=== PATIENT | male | born 1955 | race Caucasian/White ===

== ENCOUNTER → 2017-02-13 | Outpatient (CLI) | payer MEDICAID ==
[~2017-02-13] MED LIST: ASPI-757 PO; HYDR25SU51 RC; NITR0.4T3 SL
== END ==
LOC: AMB 13:09
PROVIDERS: ATTEND Nurse Practitioner
DX: R07.89 Other chest pain (principal); R00.1 Bradycardia, unspecified
CPT/HCPCS: A0425; A0426

== ENCOUNTER → 2017-02-13 | Outpatient (CLI) | payer MEDICAID | LOC: AMB 12:12 | PROVIDERS: ATTEND Nurse Practitioner | DX: R07.9 Chest pain, unspecified (principal); M79.602 Pain in left arm; R20.2 Paresthesia of skin | CPT/HCPCS: A0425; A0427 ==

== ENCOUNTER 2017-04-27 11:00 | Outpatient (RCR) | payer MEDICAID ==
[2017-04-05 13:15] VITALS: BP 118/78
[2017-04-05 13:17] VITALS: BP 112/72
--- NOTE | 2017-04-05 13:55 | CARDIAC REHAB PLAN OF CARE ---
Physician: [facility], Yon Bishop MD Patient is being seen: Moisés Scherer Medical Diagnosis: STEMI, PM Date of Initial Evaluation: Apr 05, 2017 Date patient was last seen: Number of treatments: Number of cancellations/No Shows: [*] INTERVENTIONS: SHORT TERM GOALS Short Term Goals Due Date: 05/03/17 Short Term Goals: Cali Cunningham is a 61 y/o male phase II patient with a hx of CABG and tobacco use presented with inferior STEMI on 02/13/17 underwent [facility] with finding of Saphenous Vein graft to pRCA with 99% stenosis s/p PCI. The patient however had recurrent CP following the procedure with recurrence of inferior ST elevations. He was brought back to the lab the following day with finding of thrombotic occlusion (recurrent) o0f SVG-RCA with CHANELLE 0-1 flow. This was treated with manual thrombectomy and angioplasty. The patient had Torsades requiring last night which required defibrillation. He was started on amiodarone drip for a day. TNI peaked at above 100 and is now 88.47. He was in AF upon arrival and has since had intermittent [id number] heart block alternation with high grade AV block. Escape rate has been consistently in the 50-60 range with a narrow QRS. Pacemaker/Defib device placed. Patient will begin phase II cardiac rehab protocol on 2017. Patient will also make adjustments to follow a heart healthy diet, improving cardiac health and to lose weight towards his BMI max weight of 169 pounds. Patient is 5'9" and 203 pounds. Short Term Goals Met: Short Term Goals Not Met Due To: PRINT BINDING WORKER GOALS Usp Goal Due Date: 06/03/17 Usp Goals: detention goals for patient are to maintain that consistency of exercise and achieve the minimum of 150 minutes each week of a moderate level of cardio exercise and add in weight resistance at least twice a week. Patient will also remain consistent with a heart healthy diet with proper portions. Usp Goals Met: Applications Trainer Goals Not Met Due To: PATIENT'S GOALS Patient Goals Due Date: 05/03/17 Patient Goals: Patient goals are to improve heart and overall health. Patient Goals Met: Patient Goals Not Met Due To: Cardiac Rehabilitation Plan of Care Comment: Cardiac rehab staff will monitor, record, and evaluate vitals, ECG, and exercise results to provide the best plan of care for the patient throughout the 36 visit phase II program. CR staff will educate and motivate the patient during visits for rehab. ANAM
[2017-04-20 13:35] VITALS: BP 120/79
[2017-04-20 13:36] VITALS: BP 115/72
[2017-04-25 13:26] VITALS: BP 126/80
[2017-04-25 13:27] VITALS: BP 106/70
[2017-04-27 17:11] VITALS: BP 108/76
[2017-04-27 17:12] VITALS: BP 108/74
--- NOTE | 2017-05-11 17:54 | CARDIAC REHAB PLAN OF CARE ---
Physician: [facility] Patient is being seen: Moisés Scherer Medical Diagnosis: STEMI, PM/Defib, Stent Date of Initial Evaluation: Apr 05, 2017 SHORT TERM GOALS Short Term Goals Due Date: 06/11/17 Short Term Goals: Cali Cunningham is a 61 y/o male phase II patient with a hx of CABG and tobacco use presented with inferior STEMI on 02/13/17 underwent [facility] with finding of Saphenous Vein graft to pRCA with 99% stenosis s/p PCI. The patient however had recurrent CP following the procedure with recurrence of inferior ST elevations. He was brought back to the lab the following day with finding of thrombotic occlusion (recurrent) o0f SVG-RCA with CHANELLE 0-1 flow. This was treated with manual thrombectomy and angioplasty. The patient had Torsades requiring last night which required defibrillation. He was started on amiodarone drip for a day. TNI peaked at above 100 and is now 88.47. He was in AF upon arrival and has since had intermittent [id number] heart block alternation with high grade AV block. Escape rate has been consistently in the 50-60 reange with a narrow QRS. Pacemaker/Defib device placed. Patient will begin phase II cardiac rehab protocol on 2017. Patient will also make adjustments to follow a heart healthy diet, improving cardiac health and to lose weight towards his BMI max weight of 169 pounds. Patient is 5'9" and 203 pounds. Short Term Goals Met: Patient has made three visits for cardiac rehab since his initial evaluation and tolerates 30 minutes of a moderate level cardio exercise , followed by 4 pound dumbbell resistance exercise. During exercise SPO2 levels are maintained in the 90's on room air and the vehicle monitor technician shows a sinus tach without ectopy and rates up 124. Short Term Goals Not Met Due To: Poor attendance. SCRAPER HAND GOALS Entry Examiner Goal Due Date: 07/11/17 Care Home Goals: The wilson to cardiac rehab goals is that consistency of exercise each week and meeting that minimum level of 150 minutes at a moderate level, along with weight resistance, and adjusting to a heart healthy diet. Entry Examiner Goals Met: Care Home Goals Not Met Due To: Both short term goals and long-term exercise goals are not being met because of a lack of attendance to cardiac rehab. PATIENT'S GOALS Patient Goals Due Date: 06/11/17 Patient Goals: Patient goals are to improve cardiac and overall health. Patient Goals Met: Patient Goals Not Met Due To: Cardiac Rehabilitation Plan of Care Comment: Cardiac rehab staff will contact patient to see if better attendance is possible, and can resume the program for the remainder of the 32 visits in the phase II program. ANAM
== END 2017-04-27 18:00 | disposition home or self-care (01) ==
LOC: CARD 11:00
PROVIDERS: ATTEND Internal Medicine Cardiovascular Disease
DX: I25.2 Old myocardial infarction (principal); Z96.89 Presence of other specified functional implants; Z95.0 Presence of cardiac pacemaker; Z95.1 Presence of aortocoronary bypass graft; Z87.891 Personal history of nicotine dependence; Z86.718 Personal history of other venous thrombosis and embolism; M19.92 Post-traumatic osteoarthritis, unspecified site
CPT/HCPCS: 93798

== ENCOUNTER → 2017-06-06 | Outpatient (CLI) | payer MEDICAID | LOC: LAB 12:14 | PROVIDERS: ATTEND Internal Medicine Cardiovascular Disease | DX: I50.22 Chronic systolic (congestive) heart failure (principal) | CPT/HCPCS: 36415; 82310; 82374; 82435; 82565; 82947; 83735; 84132; 84295; 84520 ==

== ENCOUNTER → 2017-12-12 | Outpatient (CLI) | payer MEDICAID | LOC: LAB 14:19 | PROVIDERS: ATTEND Internal Medicine | DX: I47.2 Ventricular tachycardia (principal) | CPT/HCPCS: 36415; 82310; 82374; 82435; 82565; 82947; 83735; 84132; 84295; 84520 ==

== ENCOUNTER 2018-01-19 12:04 | Emergency (ER) | payer MEDICAID ==
[~2018-01-19 12:04] MED LIST changes: -ATOR40TA24 PO; -FURO-45 PO; -LISI5TAB25 PO; -MAGN400T36 PO; -METO25TA23 PO; -METO50TA19 PO; -NIT4 SL; -POTA20TA85 PO; -SPIR25TA80 PO; -TICA90TA PO
--- NOTE | 2018-01-19 12:12 | ER Report ---
History and Physical Time Seen By MD: 12:13 HPI/ROS This is a 62-year-old male with a history of an SD with hx of CABG and tobacco use presented with inferior STEMI on 02/13/[address] [facility] with finding of Saphenous Vein graft to pRCA with 99% stenosis s/p PCI. The patient however had recurrent CP following the procedure with recurrence of inferior ST elevations. He was brought back to the lab the following day with finding of thrombotic occlusion (recurrent) o0f SVG-RCA with CHANELLE 0-1 flow. This was treated with manual thrombectomy and angioplasty. The patient had Torsades requiring last night which required defibrillation. He was started on amiodarone drip for a day. TNI peaked at above 100 and is now 88.47. He was in AF upon arrival and has since had intermittent [id number] heart block alternation with high grade AV block. Escape rate has been consistently in the 50-60 range with a narrow QRS. He was moving today when he started to experience chest tightness while going up and down the stairs. Became diaphoretic and SOB. Pain relieved eventually with rest. Pain free at this time. Take meds as prescribed. Is on Brelinta. No other complaints. Remainder of the 14 system rev: Yes Allergies: Coded Allergies: No Known Drug Allergies (Unverified , 02/13/17) Home Meds Reported Medications Atorvastatin Calcium (LIPITOR) 40 Mg Tablet, 2 TAB PO QDAY, TAB 01/19/18 Nitroglycerin (NITROSTAT) 0.4 Mg Subl, 0.4 MG SL Q5MIN 01/19/18 Spironolactone (SPIRONOLACTONE) 25 Mg Tablet, 12.5 MG PO DAILY, TAB 01/19/18 Ticagrelor (BRILINTA) 90 Mg Tablet, 90 MG PO BID 01/19/18 Lisinopril (LISINOPRIL) 5 Mg Tablet, 5 MG PO QDAY, TAB 01/19/18 Furosemide (FUROSEMIDE) 20 Mg Tablet, 1 TAB PO DAILY, TAB 01/19/18 Metoprolol Succinate (METOPROLOL SUCCINATE) 50 Mg Tab.er.24h, 1 TAB PO QAM, TAB 01/19/18 Metoprolol Succinate (METOPROLOL SUCCINATE) 25 Mg Tab.er.24h, 1 TAB PO QHS, TAB 01/19/18 Magnesium Oxide (MAGNESIUM OXIDE) 400 Mg Tablet, 400 MG PO DAILY 01/19/18 Potassium Chloride (KLOR-CON M20) 20 Meq Tab.er.prt, 20 MEQ PO QDAY 01/19/18 Aspirin (ASPIRIN) 325 Mg Tablet, 325 MG PO Q4-6H PRN for PAIN, TAB 02/03/17 Nitroglycerin (NITROGLYCERIN) 0.4 Mg Tab.subl, 0.4 MG SL Q5MIN 02/03/17 Reviewed Nurses Notes: Yes Old Medical Records Reviewed: Yes Hx Smoking: Yes Hx Substance Use Disorder: No Hx Alcohol Use: Yes Constitutional Vital Sign - Last 24 Hours 01/19/18 01/19/18 01/19/18 01/19/18 12:04 12:10 12:11 12:19 Pulse ??? 115 110 Resp 20 23 B/P (MAP) 158/88 (111) Pulse Ox 97 97 O2 Delivery Room Air 01/19/18 01/19/18 01/19/18 01/19/18 12:30 12:34 12:49 13:00 Pulse 104 106 Resp 16 16 B/P (MAP) 156/82 (106) 156/84 (108) Pulse Ox 95 93 O2 Delivery Room Air Room Air 01/19/18 01/19/18 01/19/18 01/19/18 13:04 13:09 13:24 13:30 Pulse 105 102 110 Resp 15 10 17 B/P (MAP) 151/83 (105) Pulse Ox 92 95 89 O2 Delivery Room Air 01/19/18 01/19/18 01/19/18 01/19/18 13:39 13:54 14:00 14:09 Pulse 110 101 106 Resp 27 13 15 B/P (MAP) 145/81 (102) Pulse Ox 92 96 92 O2 Delivery Room Air Room Air Room Air 01/19/18 01/19/18 01/19/18 01/19/18 14:14 14:29 14:30 14:32 Pulse 109 106 Resp 9 13 B/P (MAP) 136/128 (131) 161/91 (114) Pulse Ox 93 92 01/19/18 01/19/18 01/19/18 01/19/18 14:44 14:59 15:00 15:14 Pulse 111 108 112 Resp 15 18 43 B/P (MAP) 159/86 (110) Pulse Ox 92 94 94 01/19/18 01/19/18 01/19/18 01/19/18 15:29 15:30 15:44 15:59 Pulse 102 99 103 Resp 14 12 17 B/P (MAP) 150/81 (104) Pulse Ox 91 92 91 O2 Delivery Room Air Room Air Room Air 01/19/18 01/19/18 01/19/18 16:04 16:19 17:49 Pulse 106 101 99 Resp 8 10 Pulse Ox 92 94 93 Physical Exam General Appearance: The patient is alert, has no immediate need for airway pr otection and no current signs of toxicity. Eyes: Pupils equal and round no injection. Respiratory: Chest is non tender, lungs are clear to auscultation. Cardiac: regular rate and rhythm Gastrointestinal: Abdomen is soft and non tender, no masses, bowel sounds normal. Neck: Neck is supple and non tender. Extremities have full range of motion and are non tender. Skin: No rashes or lesions. DIFFERENTIAL DIAGNOSIS: After history and physical exam differential diagnosis was considered for chest pain including but not limited to myocardial ischemia, pericarditis pulmonary embolus, chest wall pain, pleural inflammation and pulmonary infectious causes. Medical Decision Making Data Points Result Diagram: 01/19/18 1229 01/19/18 1229 Laboratory Hematology Test 01/19/18 12:29 01/19/18 14:26 01/19/18 17:32 Red Blood Count 5.12 M/uL (4.00-5.60) Mean Corpuscular Volume 89.4 fL (80.0-96.0) Mean Corpuscular Hemoglobin 30.6 pg (26.0-33.0) Mean Corpuscular Hemoglobin Concent 34.2 g/dL (32.0-36.0) Red Cell Distribution Width 13.4 % (11.5-14.5) Mean Platelet Volume 8.6 fL (7.2-11.1) Neutrophils (%) (Auto) 76.9 % (39.4-72.5) Lymphocytes (%) (Auto) 15.6 % (17.6-49.6) Monocytes (%) (Auto) 6.3 % (4.1-12.4) Eosinophils (%) (Auto) 0.5 % (0.4-6.7) Basophils (%) (Auto) 0.7 % (0.3-1.4) Nucleated RBC Relative Count (auto) 0.0 /100WBC Neutrophils # (Auto) 5.7 K/uL (2.0-7.4) Lymphocytes # (Auto) 1.2 K/uL (1.3-3.6) Monocytes # (Auto) 0.5 K/uL (0.3-1.0) Eosinophils # (Auto) 0.0 K/uL (0.0-0.5) Basophils # (Auto) 0.1 K/uL (0.0-0.1) Nucleated RBC Absolute Count (auto) 0.00 K/uL Sodium Level 138 mmol/L (137-145) Potassium Level 4.3 mmol/L (3.5-5.0) Chloride Level 107 mmol/L (98-107) Carbon Dioxide Level 18 mmol/L (22-30) Blood Urea Nitrogen 12 mg/dl (9-21) Creatinine 0.90 mg/dl (0.66-1.25) Glomerular Filtration Rate Calc > 60.0 Random Glucose 106 mg/dl (75-110) Calcium Level 9.8 mg/dl (8.4-10.2) Total Bilirubin 0.7 mg/dl (0.2-1.3) Aspartate Amino Transf (AST/SGOT) 47 U/L (0-35) Alanine Aminotransferase (ALT/SGPT) 41 U/L (0-56) Alkaline Phosphatase 126 U/L (0-126) Total Protein 7.8 g/dl (6.3-8.2) Albumin 4.6 g/dl (3.5-5.0) D-Dimer Quantitative (PE/DVT) 0.52 ug/ml (0-0.50) Troponin I 0.047 ng/ml Chemistry Test 01/19/18 12:29 01/19/18 14:26 01/19/18 17:32 White Blood Count 7.4 k/uL (4.5-11.0) Red Blood Count 5.12 M/uL (4.00-5.60) Hemoglobin 15.6 g/dL (14.0-18.0) Hematocrit 45.7 % (42.0-52.0) Mean Corpuscular Volume 89.4 fL (80.0-96.0) Mean Corpuscular Hemoglobin 30.6 pg (26.0-33.0) Mean Corpuscular Hemoglobin Concent 34.2 g/dL (32.0-36.0) Red Cell Distribution Width 13.4 % (11.5-14.5) Platelet Count 272 K/uL (150-450) Mean Platelet Volume 8.6 fL (7.2-11.1) Neutrophils (%) (Auto) 76.9 % (39.4-72.5) Lymphocytes (%) (Auto) 15.6 % (17.6-49.6) Monocytes (%) (Auto) 6.3 % (4.1-12.4) Eosinophils (%) (Auto) 0.5 % (0.4-6.7) Basophils (%) (Auto) 0.7 % (0.3-1.4) Nucleated RBC Relative Count (auto) 0.0 /100WBC Neutrophils # (Auto) 5.7 K/uL (2.0-7.4) Lymphocytes # (Auto) 1.2 K/uL (1.3-3.6) Monocytes # (Auto) 0.5 K/uL (0.3-1.0) Eosinophils # (Auto) 0.0 K/uL (0.0-0.5) Basophils # (Auto) 0.1 K/uL (0.0-0.1) Nucleated RBC Absolute Count (auto) 0.00 K/uL Glomerular Filtration Rate Calc > 60.0 Calcium Level 9.8 mg/dl (8.4-10.2) Total Bilirubin 0.7 mg/dl (0.2-1.3) Aspartate Amino Transf (AST/SGOT) 47 U/L (0-35) Alanine Aminotransferase (ALT/SGPT) 41 U/L (0-56) Alkaline Phosphatase 126 U/L (0-126) Total Protein 7.8 g/dl (6.3-8.2) Albumin 4.6 g/dl (3.5-5.0) D-Dimer Quantitative (PE/DVT) 0.52 ug/ml (0-0.50) Troponin I 0.047 ng/ml Coagulation Test 01/19/18 14:26 D-Dimer Quantitative (PE/DVT) 0.52 ug/ml ED Course/Re-evaluation ED Course 62-year-old male with a history of coronary artery disease presents emergency department with what sounds like angina. However 2 troponins were taken and the 2nd one while negative still doubled from the 1st. His chest pain was relieved when he stopped moving quickly up and down stairs. Noted is a very mildly elevated D dimer which can be explained by age adjustment and is therefore negative given a very low pretest probability for a PE. Third troponin Has now risen into the zamora zone. I spoke with Dr. Patel, cardiology at [facility], who would like the patient transferred there for further evaluation. Decision to Disposition Date: Jan 19, 2018 Decision to Disposition Time: 19:05 Depart Departure Latest Vital Signs Vital Signs Date Time Temp Pulse Resp B/P (MAP) Pulse Ox O2 Delivery O2 Flow Rate FiO2 01/19/18 17:49 99 93 01/19/18 16:19 10 01/19/18 15:59 Room Air 01/19/18 15:30 150/81 (104) Impression: Primary Impression: Chest pain Condition: Improved Disposition: XFER TO [facility] Referrals: RED GUNTER MD (PCP) Problem Qualifiers Primary Impression: Chest pain Chest pain type: unspecified Qualified Codes: R07.9 - Chest pain, unspecified SOFIA ACOSTA MD Jan 19, 2018 12:12
[2018-01-19 12:41] LABS: PLATELET COUNT, AUTOMATED 272 K/uL (150-450)
[2018-01-19] MEDS ORDERED: MAGN400T36 PO (12:42)
[2018-01-19] MEDS ORDERED: ATOR40TA24 PO (12:42)
[2018-01-19] MEDS ORDERED: METO25TA23 PO (12:42)
[2018-01-19] MEDS ORDERED: LISI5TAB25 PO (12:42)
[2018-01-19] MEDS ORDERED: SPIR25TA80 PO (12:42)
[2018-01-19] MEDS ORDERED: FURO-45 PO (12:42)
[2018-01-19] MEDS ORDERED: NIT4 SL (12:42)
[2018-01-19] MEDS ORDERED: METO50TA19 PO (12:42)
[2018-01-19] MEDS ORDERED: TICA90TA PO (12:42)
[2018-01-19] MEDS ORDERED: POTA20TA85 PO (12:42)
--- NOTE | 2018-01-19 13:52 | EKG ---
[facility] PATIENT NAME: GENEVA TAYLOR : [id number] MR: [id number] V: [id number] EXAM DATE: ORDERING PHYSICIAN: SOFIA ACOSTA TECHNOLOGIST: Test Reason : chest pain Blood Pressure : / mmHG Vent. Rate : 111 BPM Atrial Rate : 111 BPM P-R Int : 170 ms QRS Dur : 084 ms QT Int : 340 ms P-R-T Axes : 046 010 033 degrees QTc Int : 462 ms Sinus tachycardia vs. ventricular paced rhythm - there appears to be possible small amplitude pacer s pikes in multiple leads Nonspecific interventricular conduction delay Abnormal ECG Confirmed by CARTER SOTO [id number] on 01/20/2018 5:34:47 AM Referred By: Confirmed By:CARTER SOTO
[2018-01-19] MEDS ORDERED: IOPAMIDOL 76% 75 ML INFUS BTL 75 ML ONE (16:44)
[2018-01-19] MEDS ORDERED: NS(*) 0.9% 50 ML BAG 50 ML ONE (16:44)
[2018-01-19 19:00] VITALS: BP 164/86
[2018-01-19] MEDS ORDERED: MAG HYD/AL HYD/SIMETH 30ML UDC PO ONE (19:45)
[2018-01-19] MEDS ORDERED: LIDOCAINE 2% VISC SLN 15ML UDC PO ONE (19:45)
[2018-01-19] MEDS ORDERED: PANTOPRAZOLE SOD 20 MG TABEC PO SCH (19:45)
== END 2018-01-19 19:51 | disposition short-term general hospital (02) ==
LOC: ER 12:14
DX: R07.9 Chest pain, unspecified (principal); R79.89 Other specified abnormal findings of blood chemistry
CPT/HCPCS: 36415; 84484; 85025; 85379; 93005; 99285; J7050; Q9967; 82040; 82247; 82310; 82374; 82435; 82565; 82947; 84075; 84132; 84155; 84295; 84450; 84460; 84520

== ENCOUNTER → 2018-01-19 | Outpatient (CLI) | payer MEDICAID ==
[~2018-01-19] MED LIST changes: +ATOR40TA24 PO; +FURO-45 PO; +LISI5TAB25 PO; +MAGN400T36 PO; +METO25TA23 PO; +METO50TA19 PO; +NIT4 SL; +POTA20TA85 PO; +SPIR25TA80 PO; +TICA90TA PO
== END ==
LOC: AMB 19:38
PROVIDERS: ATTEND Nurse Practitioner
DX: R07.9 Chest pain, unspecified (principal); R79.89 Other specified abnormal findings of blood chemistry; I25.2 Old myocardial infarction
CPT/HCPCS: A0425; A0426